=== PATIENT | female | born 1970 | race Caucasian/White ===

== ENCOUNTER → 2018-05-07 | Outpatient (CLI) | payer OTHER ==
[2018-05-07 12:12] LABS: ANION GAP 11 (8-16); BLOOD UREA NITROGEN 9 mg/dl (7-20); CALCIUM 9.2 mg/dl (8.4-10.2); CARBON DIOXIDE 26 mmol/L (21-31); CHLORIDE 109 mmol/L (97-110); CREATININE 0.51 mg/dl (0.44-1.00); GLUCOSE 117 mg/dl (70-220); POTASSIUM 4.2 mmol/L (3.5-5.1); SODIUM 142 mmol/L (135-144)
[2018-05-07] MEDS: NITROGLYCERIN AEROSOL (4.9 GM) (13:08)
[2018-05-07] MEDS: SOD CHLORIDE 0.9% 100 ML (13:15)
[2018-05-07] MEDS: IOHEXOL 100 ML (13:15)
[2018-05-07] MEDS: IOHEXOL 350MG/ML 50 ML BTL (13:16)
== END | disposition home or self-care (01) ==
LOC: LAB 10:38
DX: R07.9 Chest pain, unspecified (principal)
CPT/HCPCS: 75574; 80048